=== PATIENT | female | born 1985 | race Caucasian/White ===

== ENCOUNTER → 2017-12-22 | Outpatient (CLI) | payer OTHER | END | disposition home or self-care (01) | LOC: LABWHC1 15:10 | PROVIDERS: ATTEND Physician Assistant | DX: R42 Dizziness and giddiness (principal) | CPT/HCPCS: 93005 ==

== ENCOUNTER → 2018-09-05 | Outpatient (CLI) | payer OTHER | END | disposition home or self-care (01) | LOC: LABWHC1 16:17 | PROVIDERS: ATTEND Obstetrics & Gynecology | DX: O20.0 Threatened abortion (principal) | CPT/HCPCS: 36415; 84702; 86850; 86900; 86901 ==

== ENCOUNTER → 2018-09-07 | Outpatient (CLI) | payer OTHER | END | disposition home or self-care (01) | LOC: LABWHC1 10:38 | PROVIDERS: ATTEND Obstetrics & Gynecology | DX: O20.0 Threatened abortion (principal) | CPT/HCPCS: 36415; 84702 ==

== ENCOUNTER 2018-09-12 13:55 | Day surgery (SDC) | payer OTHER ==
[2018-09-12 12:59] LABS: Basophils # (A) 0.1 k/uL (0-0.2); Basophils % (A) 1 %; Eosinophils # (A) 0.1 k/uL (0-0.7); Eosinophils % (A) 1 %; HCT 43.5 % (34.0-46.0); HGB 13.8 gm/dL (11.4-16.0); Lymphocytes # (A) 1.9 k/uL (1.0-4.8); Lymphocytes % (A) 18 %; MCH 26.2 pg (25.0-35.0); MCHC 31.7 g/dL (31.0-37.0); MCV 82.7 fL (80.0-100.0); Mean Platelet Volume 7.4; Monocytes # (A) 0.4 k/uL (0-1.0); Monocytes % (A) 4 %; Neutrophils # (A) 8.2 k/uL (1.3-7.7); Neutrophils % (A) 76 %; Platelet Count 192 k/uL (150-450); RBC 5.26 m/uL (3.80-5.40); RDW 13.1 % (11.5-15.5); WBC 10.8 k/uL (3.8-10.6)
[~2018-09-12 13:55] MED LIST: Pre Op ABX Message 1 EACH MISC MISCELLANE ONE
[2018-09-12 14:27] VITALS: BMI 27.5
[2018-09-12] MEDS ORDERED: LACTATED RINGERS 1,000 ML IV ONE ×2 (14:32→18:04)
[2018-09-12] MEDS ORDERED: LIDOCAINE 1% 20 ML VIAL (10MG/ML) FOR IV START INTRADERMA ONE (14:32)
[2018-09-12] MEDS ORDERED: ONDANSETRON 4 MG/2 ML VIAL IVP ONE (14:32)
[2018-09-12] MEDS ORDERED: DEXAMETHASONE SOD PHOS (MDV) 100 MG/10 ML VIAL IV ONE (14:33)
[2018-09-12] MEDS ORDERED: KETOROLAC 30 MG/ML 1 ML VIAL ONE (16:56)
[2018-09-12] MEDS ORDERED: fentaNYL (PF) 50 MCG/ML 2 ML AMP ONE (16:56)
[2018-09-12] MEDS ORDERED: PROPOFOL 10 MG/ML 20 ML VIAL IV ONE (16:56)
[2018-09-12] MEDS ORDERED: MIDAZOLAM 2 MG/2 ML VIAL ONE (16:56)
--- NOTE | 2018-09-12 17:19 | P.OP ---
Date of Procedure: 09/12/18 Preoperative Diagnosis: Missed Ab at 6 weeks gestation Postoperative Diagnosis: same Procedure(s) Performed: Suction dilatation and curettage of the uterine cavity Anesthesia: SIMRAN Surgeon: Hetal Norris Estimated Blood Loss (ml): 50 Urine output (ml): 100 Pathology: other (Products of conception) Condition: stable Disposition: PACU Operative Findings: Anteverted uterus, 6-8 week size. Adnexa negative bilaterally. Description of Procedure: Patient is brought to the operating room where a general anesthetic is administered. She's placed in the dorsal lithotomy position. The appropriate timeout is performed to assure proper patient and procedural identification. Blood type is B+. The cervix, vagina, perineal bodies are all prepped and draped in usual sterile fashion. Examination under anesthesia reveals a anteverted uterus of 6-8 weeks size, negative adnexa bilaterally. Bladder is drained for 100 mL of clear yellow urine. Weighted speculum was placed into the vagina. Anterior lip of the cervix is grasped with a double-tooth tenaculum. Uterus sounds to a depth of 10 cm in the anteverted position. The cervix was gently and systematically dilated using Hanks dilators. A #8 curved curet is placed to the dome of the fundus. Under appropriate suction pressure the uterus is gently and systematically curettaged. A small to moderate amount of tissue is sent to pathology. A medium sharp curette is used and the "cry the uterus" is appreciated. The curved curet is once again placed and no additional blood or tissue is procured. Tenaculum is removed from the cervix. All sponge needle and enhancement counts are correct. Total estimated blood loss 50 mL's. Total fluids 100 mL's. Patient is brought back to the recovery room in stable condition with stable vital signs including blood pressure 113/60 , pulse 65, 98% O2 saturation. Toradol is given prior to leaving the operative suite. Patient will follow-up with me in 2 weeks.
[2018-09-12 17:46] VITALS: TEMP 97.5
[2018-09-12 18:10] VITALS: RESP 16
[2018-09-12 18:20] VITALS: BP 114/74; PULSE 82
== END 2018-09-12 18:37 | disposition home or self-care (01) ==
LOC: OR 13:55
PROVIDERS: ATTEND Obstetrics & Gynecology
DX: O02.1 Missed abortion (principal); Z3A.01 Less than 8 weeks gestation of pregnancy; N85.4 Malposition of uterus
CPT/HCPCS: 86900; 86901; 88305; 85025; 86850; 36415; 59820; J2250; J2405; J3010; J1885; J1100; J2704

== ENCOUNTER → 2018-09-12 | Outpatient (CLI) | payer OTHER | LOC: LABPAT 12:18 | PROVIDERS: ATTEND Obstetrics & Gynecology | DX: Z53.9 Procedure and treatment not carried out, unspecified reason (principal) ==

== ENCOUNTER 2019-07-19 11:04 | Inpatient (IN) | payer BC ==
[2019-07-19] MEDS ORDERED: CITRIC ACID-SODIUM CITRATE 15 ML CUP PO ONE (12:54)
[2019-07-19] MEDS ORDERED: LACTATED RINGERS 1,000 ML IV ONE (12:54)
[2019-07-19] MEDS: LACTATED RINGERS 1,000 ML IV SCH ×3 (13:18→20:51)
--- NOTE | 2019-07-19 13:25 | P.HPOB ---
History of Present Illness H&P Date: 07/19/19 Chief Complaint: labor at 38-5/7 weeks this is a 33 year old 6 para 2032 woman who has an estimated due date of 07/28/2019 based on first trimester ultrasound. She has a history of 2 previous low transverse sections and is planning a repeat with bilateral tubal ligation. She presents to labor and delivery triage with regular painful contractions starting at 7 AM. On evaluation she is ricky moderately every 3-7 minutes. Her cervix is closed however her contractions do not resolve with observation and she is becoming uncomfortable. Decision was therefore made to proceed to repeat section. Her has been otherwise unremarkable. She has been counseled in the outpatient setting regarding options for contraception and she and her desire no further pregnancies. She has signed consents for bilateral tubal ligation. Laboratory data: Blood type B positive, antibody screen negative, rubella immune, VDRL nonreactive, hepatitis B surface antigen negative, HIV negative, gonorrhea and clinic cultures negative, diabetes screening within normal limits. Group B strep negative. Obstetric history: Primary low transverse section in 2013 for failure to progress at 41 weeks. Repeat low transverse section 2015. Spontaneous miscarriages in 2008, 2011, 2018. Review of Systems All systems: negative Past Medical History Past Medical History: No Reported History History of Any Multi-Drug Resistant Organisms: None Reported Past Surgical History: Section Additional Past Surgical History / Comment(s): D&C x2 Past Anesthesia/Blood Transfusion Reactions: No Reported Reaction Smoking Status: Never smoker - Past Family History Mother Family Medical History: No Reported History Medications and Allergies Home Medications Medication Instructions Recorded Confirmed Type Pnv,Calcium 72/Iron/Folic Acid 1 each PO RT-DAILY 06/03/16 07/19/19 History [ Plus Tablet] Allergies Allergy/AdvReac Type Severity Reaction Status Date / Time No Known Allergies Allergy Verified 07/19/19 11:53 Exam Vital Signs Temp Pulse Resp BP 07/19/19 11:30 98.1 F 104 H 16 136/93 Intake and Output 07/18/19 07/19/19 07/19/19 22:59 06:59 14:59 Other: Weight 76.657 kg targeted physical exam is performed. This is a somewhat uncomfortable-appearing female who is visibly gravid. HEENT exam is unremarkable. Her breathing is unlabored. Her heart is a regular rate and rhythm. Her abdomen is gravid and nontender. On pelvic exam the cervix is closed, thick and presenting part is high. No evidence of rupture of membranes or vaginal bleeding at this time. Extremities show trace edema. heart tones are category 1. She is ricky every 3-7 minutes spontaneously. Assessment and Plan (1) Spontaneous onset of labor Current Visit: Yes Status: Acute Code(s): [id number] - SNOMED Code(s): 70232674 (2) Family planning Current Visit: Yes Status: Acute Code(s): Z30.09 - ENCOUNTER FOR [facility] GENERAL CNSL AND ADVICE ON CONTRACEPTION SNOMED Code(s): 448108201 (3) History of Current Visit: Yes Status: Acute Code(s): Z98.891 - HISTORY OF UTERINE SCAR FROM PREVIOUS SURGERY SNOMED Code(s): 934479778 Plan: 33-year-old 6 para 2031 woman who presents at 38-5/7 weeks gestation in spontaneous active labor with a history of 2 previous low transverse sections. Plan is for repeat low transverse section with bilateral tubal ligation. The procedure was reviewed with the patient and all questions are answered. Patient understands there is increased risk of bleeding, infection, injury to internal structures secondary to scarring with history of previous section 2. She again verbalizes her desire for bilateral tubal ligation. Consent is obtained.
[2019-07-19 13:35] LABS: Basophils # (A) 0.1 k/uL (0-0.2); Basophils % (A) 0 %; Eosinophils # (A) 0.1 k/uL (0-0.7); Eosinophils % (A) 1 %; HCT 40.8 % (34.0-46.0); HGB 13.3 gm/dL (11.4-16.0); Lymphocytes # (A) 2.2 k/uL (1.0-4.8); Lymphocytes % (A) 14 %; MCH 25.9 pg (25.0-35.0); MCHC 32.7 g/dL (31.0-37.0); Monocytes # (A) 0.6 k/uL (0-1.0); Monocytes % (A) 4 %; Neutrophils # (A) 12.7 k/uL (1.3-7.7); Neutrophils % (A) 81 %; Platelet Count 225 k/uL (150-450); RBC 5.16 m/uL (3.80-5.40); RDW 13.4 % (11.5-15.5); WBC 15.7 k/uL (3.8-10.6)
[2019-07-19] MEDS ORDERED: MORPHINE SULFATE (PF) 0.3 MG/0.3 ML SYR ONE (14:09)
[2019-07-19] MEDS ORDERED: KETOROLAC 30 MG/ML 1 ML VIAL ONE (14:09)
[2019-07-19] MEDS ORDERED: OXYTOCIN 10 UNIT/ML 1 ML VIAL ONE (14:09)
[2019-07-19] MEDS ORDERED: ONDANSETRON 4 MG/2 ML VIAL ONE (14:09)
[2019-07-19] MEDS ORDERED: NALBUPHINE 10 MG/ML (1 ML AMP) ONE (14:09)
[2019-07-19] MEDS ORDERED: LACTATED RINGERS 1,000 ML BAG IV ONE (14:09)
[2019-07-19] MEDS ORDERED: fentaNYL (PF) 50 MCG/ML 2 ML AMP ONE (14:09)
[2019-07-19] MEDS ORDERED: DEXAMETHASONE SOD PHOS (MDV) 100 MG/10 ML VIAL ONE (14:09)
[2019-07-19] MEDS ORDERED: PHENYLEPHRINE-0.9% NACL SYG 1 MG/10 ML SYRINGE ONE (14:09)
[2019-07-19] MEDS ORDERED: METOCLOPRAMIDE 5 MG/ML 2 ML VIAL IVP PRN ×2 (14:49→15:07)
[2019-07-19] MEDS ORDERED: KETOROLAC 30 MG/ML 1 ML VIAL IVP PRN (14:49)
[2019-07-19] MEDS ORDERED: HYDROmorphone 0.5 MG/0.5 ML SYRINGE IVP PRN (14:49)
[2019-07-19] MEDS ORDERED: ONDANSETRON 4 MG/2 ML VIAL IVP PRN ×2 (14:49→15:07)
[2019-07-19] MEDS ORDERED: NALOXONE 0.4 MG/ML 1 ML VIAL IV PRN ×2 (14:49→15:07)
[2019-07-19] MEDS ORDERED: NALBUPHINE 10 MG/ML (1 ML AMP) IV PRN (14:49)
[2019-07-19] MEDS ORDERED: diphenhydrAMINE 50 MG/ML 1 ML VIAL IVP PRN ×3 (14:49→15:07)
[2019-07-19] MEDS ORDERED: diphenhydrAMINE 25 MG CAP PO PRN (15:07)
[2019-07-19] MEDS ORDERED: ZOLPIDEM 5 MG TAB PO PRN (15:07)
[2019-07-19] MEDS ORDERED: ACETAMINOPHEN TAB 325 MG TAB PO PRN (15:07)
[2019-07-19] MEDS ORDERED: diphenhydrAMINE 50 MG CAP PO PRN (15:07)
--- NOTE | 2019-07-19 15:07 | P.OP ---
Date of Procedure: 07/19/19 Preoperative Diagnosis: intrauterine at 38-5/7 weeks Spontaneous labor History of previous low transverse section 2 Desires permanent sterility Postoperative Diagnosis: same Procedure(s) Performed: repeat low transverse section and bilateral tubal ligation with Filshie clips Anesthesia: spinal Surgeon: Latisha Fraga Linoleum Layer #1: Susi Olguin Estimated Blood Loss (ml): 500 IV fluids (ml): 1,000 Urine output (ml): 200 Pathology: none sent Condition: stable Disposition: floor Indications for Procedure: this is a 33-year-old 6 para 2031 woman who presented in spontaneous active labor. History of previous low transverse section 2. Operative Findings: female in the vertex presentation with Apgars of 9 at 1 minute and 9 at 5 minutes weighing 5 lbs. 11 oz., 2570 g. Intact, three-vessel cord placenta. Extensive scarring of the bladder to the low anterior uterus at site of old hysterotomy scar. Description of Procedure: After the patient was met preoperatively and all questions were answered, she was taken to the operating room where spinal anesthetic was administered without incident. She was then positioned, prepped and draped in the dorsal supine position with a leftward tilt. Sewell catheter was placed. After anesthetic was confirmed adequate, a low transverse skin incision was made following the pre- existing scar. This was carried down to the underlying fascia both sharply and with the electrocautery. The fascia was then incised in the midline and extended bilaterally with the Shelton scissors. The superior aspect of the fascial incision was elevated and the underlying rectus muscles dissected off sharply and with the electrocautery. The inferior aspect of the fascial incision was also elevated and the underlying rectus muscles dissected off sharply. The muscles were adherent in the midline. These were bluntly and the peritoneum was tented up with hemostats. The peritoneum was entered sharply with the Metzenbaum scissors. The peritoneal incision was extended inferiorly and superiorly with good visualization of the bladder. the bladder was noted to be extensively and densely scarred to the old hysterotomy site. This was carefully dissected away with Metzenbaum scissors.The bladder blade was placed. The vesicouterine peritoneum was identified, tented up and entered sharply, the bladder flap was created both sharply and digitally. A low transverse uterine incision was then made sharply and carried down to the underlying amniotic memb ranes. Membranes were ruptured and clear fluid was noted. The uterine incision was extended bilaterally bluntly. The 's head was delivered from the incision without difficulty. The nose and mouth were bulb suctioned. The rest of the was delivered onto the field without difficulty. And cut and the infant was taken to the warmer. An intact, three-vessel cord placenta was then manually removed and the uterus was exteriorized. The uterus was cleared of all clot and debris. The uterine incision was delineated with Grewal clamps. The uterine incision was then closed in a running locked fashion with 0 Vicryl suture. Additional [id number] sutures were placed where necessary along the incision for hemostasis. The right and left fallopian tubes were positively identified and carried out to the fimbriated ends. Filshie clip clips were then applied in the mid ampullary portion of the tubes completely transecting each tube. The uterus was then returned to the abdomen and the gutters were cleared of all clot and debris. The uterine incision was reinspected and Bovie electrocautery was utilized were necessary for hemostasis. The fascial edges, peritoneal edges and rectus muscles were inspected and Bovie electrocautery utilized were necessary for hemostasis. The fascia was then closed in a running fashion with 0 Vicryl suture. The subcuticular tissue was copiously suction irrigated and Bovie electrocautery utilized were necessary for hemostasis. 3-0 Vicryl suture was utilized to reapproximate the subcuticular tissue. The skin was then closed in a subcutaneous fashion with 4-0 Vicryl suture. All counts reported to me as correct by the operating room staff at the end of the procedure. The patient received antibiotics preoperatively and Pitocin following cord clamp. Mother and infant were both transported from the room in stable condition.
[2019-07-19] MEDS ORDERED: OXYTOCIN 20 UNITS/1000 ML NS 1,000 ML IV SCH (15:15)
[2019-07-19] MEDS: SENNOSIDES-DOCUSATE SODIUM 1 EACH TAB PO SCH (19:40)
[2019-07-20] MEDS: LACTATED RINGERS 1,000 ML IV SCH ×4 (00:26→19:35)
[2019-07-20 07:17] LABS: Basophils % (A) 0 %; Eosinophils # (A) 0.1 k/uL (0-0.7); Eosinophils % (A) 0 %; HCT 27.9 % (34.0-46.0); Lymphocytes % (A) 12 %; MCH 25.9 pg (25.0-35.0); MCV 78.4 fL (80.0-100.0); Mean Platelet Volume 9.3; Monocytes # (A) 0.9 k/uL (0-1.0); Monocytes % (A) 5 %; Neutrophils # (A) 13.3 k/uL (1.3-7.7); Neutrophils % (A) 81 %; Platelet Count 178 k/uL (150-450); RBC 3.55 m/uL (3.80-5.40); RDW 13.4 % (11.5-15.5); WBC 16.5 k/uL (3.8-10.6)
[2019-07-20 07:21] LABS: HGB 9.2 gm/dL (11.4-16.0)
--- NOTE | 2019-07-20 08:21 | P.PNOBGPC ---
Subjective - Subjective Principal diagnosis: day 1 Interval history: feeling well, minimal lochia, pain very well controlled. Patient reports: Reports appetite normal, Reports voiding normally, Reports pain well controlled, Reports ambulating normally, Denies dizzy ambulation, Denies nauseated : doing well, bottle feeding Objective - Vital Signs Latest vital signs: Vital Signs Temp Pulse Resp BP Pulse Ox 07/20/19 05:00 20 07/20/19 03:50 98.0 F 73 18 103/60 07/20/19 03:00 18 98 07/20/19 00:25 18 07/20/19 00:00 97.6 F 80 18 126/73 07/19/19 22:35 18 98 07/19/19 20:50 18 07/19/19 19:00 97.9 F 79 20 112/74 98 07/19/19 17:12 98.8 F 88 16 122/67 07/19/19 16:44 98.7 F 78 16 128/76 07/19/19 16:14 83 16 115/66 07/19/19 16:00 97.6 F 70 16 116/59 07/19/19 15:56 69 16 116/59 07/19/19 15:49 16 100 07/19/19 15:44 80 16 120/62 07/19/19 15:29 77 16 118/65 100 07/19/19 15:14 98.1 F 80 16 114/59 07/19/19 14:49 16 98 07/19/19 11:30 98.1 F 104 H 16 136/93 Intake and Output 07/19/19 07/20/19 07/20/19 22:59 06:59 14:59 Output Total 300 950 Balance -300 -950 Output: Urine 300 950 Uretheral (Sewell) 300 950 Other: Voiding Method Indwelling Catheter - Exam Extremities: Present: normal. Absent: edema Abdomen: Present: normal appearance, soft. Absent: distention, tenderness Incision: Present: normal, dry, intact, dressed Uterus: Present: normal, firm. Absent: tenderness - Labs Labs: Abnormal Lab Results - Last 24 Hours (Table) 07/19/19 07/20/19 Range/Units 13:15 07:00 WBC 15.7 H 16.5 H (3.8-10.6) k/uL RBC 3.55 L (3.80-5.40) m/uL Hgb 9.2 L D (11.4-16.0) gm/dL Hct 27.9 L (34.0-46.0) % MCV 79.0 L 78.4 L (80.0-100.0) fL Neutrophils # 12.7 H 13.3 H (1.3-7.7) k/uL Assessment and Plan (1) Spontaneous onset of labor Current Visit: Yes Status: Acute Code(s): OWN5617 - SNOMED Code(s): 88442648 (2) Family planning Current Visit: Yes Status: Acute Code(s): Z30.09 - ENCOUNTER FOR OTH GENERAL CNSL AND ADVICE ON CONTRACEPTION SNOMED Code(s): 962444914 (3) History of Current Visit: Yes Status: Acute Code(s): Z98.891 - HISTORY OF UTERINE SCAR FROM PREVIOUS SURGERY SNOMED Code(s): 134076792 Plan: 33-year-old 6 para 3 woman postop day 1 status post repeat low transverse section and bilateral tubal ligation. Recovering well. Routine care.
[2019-07-20 08:49] VITALS: RESP 18
[2019-07-20] MEDS: SENNOSIDES-DOCUSATE SODIUM 1 EACH TAB PO SCH ×2 (11:11→20:15)
[2019-07-20] MEDS: HYDROcodone/APAP 5-325MG 1 EACH TAB PO PRN ×2 (14:50→23:43)
[2019-07-20] MEDS: IBUPROFEN 600 MG TAB PO PRN (20:15)
[2019-07-21 00:06] VITALS: TEMP 97.8
[2019-07-21] MEDS: IBUPROFEN 600 MG TAB PO PRN (06:46)
[2019-07-21] MEDS: SENNOSIDES-DOCUSATE SODIUM 1 EACH TAB PO SCH (08:00)
[2019-07-21 09:44] VITALS: BP 121/77; PULSE 84
--- NOTE | 2019-07-21 10:47 | P.DS ---
Providers Date of admission: 07/19/19 13:18 Expected date of discharge: 07/21/19 Attending physician: Hetal Norris Primary care physician: Stated None - Discharge Diagnosis(es) (1) Spontaneous onset of labor Current Visit: Yes Status: Acute (2) Family planning Current Visit: Yes Status: Acute (3) History of Current Visit: Yes Status: Acute Hospital Course: this is a 33-year-old 6 now para 3 woman who presented at 38-5/7 weeks gestation in spontaneous active labor. She has a history of previous section 2 and was scheduled for a repeat . She was in active labor therefore was takema is a 33-year-old 6 now para 3 woman who presented at 38-5/7 weeks gestation in spontaneous active labor. She has a history of previous section 2 and was scheduled for a repeat . She was in active labor therefore was taken for repeat . She had also signed consent form and desired bilateral tubal ligation. She went to the operating room where she underwent an uncomplicated repeat low transverse section with bilateral tubal ligation with Filshie clips. Please see the operative report for details. She was delivered of a liveborn female weighing 5 lbs. 11 oz. with Apgars of 9 at 1 minute and 9 at 5 minutes. Her course was unremarkable. By postoperative day #1 she was ambulating and voiding without difficulty. She was tolerating a general diet. By postoperative day #2 she continued to do very well. Her incision was well healing Procedures: repeat low transverse section with bilateral tubal ligation Patient Condition at Discharge: Good Plan - Discharge Summary New Discharge Prescriptions: No Action Pnv,Calcium 72/Iron/Folic Acid [ Plus Tablet] 1 each PO RT-DAILY Discharge Medication List Pnv,Calcium 72/Iron/Folic Acid [ Plus Tablet] 1 each PO RT-DAILY 06/03/16 [History] Follow up Appointment(s)/Referral(s): Hetal Norris MD [STAFF PHYSICIAN] - 2 Weeks Activity/Diet/Wound Care/Special Instructions: Follow-up in 2 weeks after surgery in the office. Call the office with any concerning signs or symptoms including fever greater than 101, severe abdominal pain, heavy vaginal bleeding, signs of wound infection, increased swelling or redness of the lower extremities, signs of depression. No driving for 2 weeks after surgery. No heavy lifting or vigorous activity until reevaluated in the office. No intercourse for 6 weeks after delivery.may use [id number] ibuprofen 600 mg every 6 hoursand/or Tylenol extra strength every 6-8 hours as needed for pain. Discharge Disposition: HOME SELF-CARE
== END 2019-07-21 12:01 | disposition home or self-care (01) | DRG 785 ==
LOC: FBPOP 11:04 → 4FBP 13:18
PROVIDERS: ADMIT Obstetrics & Gynecology; ATTEND Obstetrics & Gynecology
PROC: 0UL70CZ Occlusion of Bilateral Fallopian Tubes with Extraluminal Device, Open Approach (ICD-10-PCS; 2019-07-19)
PROC: 10D00Z1 Extraction of Products of Conception, Low, Open Approach (ICD-10-PCS; principal; 2019-07-19 13:30)
DX: O34.211 Maternal care for low transverse scar from previous cesarean delivery (principal); Z37.0 Single live birth; Z3A.38 38 weeks gestation of pregnancy; Z30.2 Encounter for sterilization
CPT/HCPCS: 59025; 85025; 86850; 86900; 86901; 99213